=== PATIENT | female | born 1950 | race Caucasian/White ===

== ENCOUNTER → 2022-05-11 08:40 | Outpatient (CLI) | payer MEDICARE, OTHER, SELFPAY ==
--- NOTE | 2022-05-11 08:45 | MR_ITS ---
FINAL REPORT CLINICAL HISTORY: LOCALIZED SWELLING, MASS AND LUMP. KNOT ON LEF SIDE OF BUTTOX 1 MONTH AGO. PUT MARKER ON SPOT. FINDINGS: Multiplanar MR images of the pelvis were performed without contrast. There is no fracture, bone bruising or marrow edema. No bony mass is identified. There is no evidence of avascular necrosis. Small left joint effusion is identified. The musculature is intact. There is a small partial tear at the insertion of the left gluteus medius tendon with adjacent soft tissue edema. There is soft tissue edema adjacent to the right greater trochanter. There is a moderate partial tear at the origin of the left hamstring tendons with adjacent soft tissue edema. There is a 3.5 cm area of abnormal signal in the left gluteal subcutaneous tissues beneath the level of the marker. There is decreased signal foci within it, could represent calcification or possibly foci of air. Differential diagnoses would include localized inflammation or hematoma, neoplasm is not entirely excluded. IMPRESSION: Abnormal signal in the left gluteal subcutaneous tissues with differential diagnoses as above. Small partial tear of the left gluteus medius tendon. Partial tear at the origin of the left hamstring tendons. Reviewed, Interpreted and Dictated by Colten Mcfarland III, MD Transcribed by Jessica Campos Authenticated and [facility]
== END ==
PROVIDERS: PCP Nurse Practitioner Family; Visit Provider Nurse Practitioner Family
DX: R22.2 Localized swelling, mass and lump, trunk (principal)
CPT/HCPCS: 72195